=== PATIENT | female | born 1965 | race African-American/Black ===

== ENCOUNTER 2023-09-01 14:33 | Inpatient (IN) | payer OTHER ==
[2023-09-01 17:54] VITALS: BMI 26.6
[2023-09-01] MEDS ORDERED: LOPERAMIDE HCL 2 MG CAPSULE PO PRN (19:06)
[2023-09-01] MEDS ORDERED: ONDANSETRON *ODT* 4 MG TABLET SL PRN (19:06)
[2023-09-01] MEDS ORDERED: NALOXONE HCL 0.4 MG/ML VIAL IM PRN (19:06)
[2023-09-01] MEDS ORDERED: POLYETHYLENE GLYCOL (HEALTHYLAX) 3350 17 GM PACKET PO PRN (19:06)
[2023-09-01] MEDS ORDERED: MAGNESIUM HYDROX 2400MG/30ML ORAL SUSPENSION 30 ML CUP PO PRN (19:06)
[2023-09-01] MEDS ORDERED: IBUPROFEN 400 MG TABLET (FP) PO PRN (19:06)
[2023-09-01] MEDS ORDERED: BISMUTH SUBSALICYLATE 524 MG/30 ML PO PRN (19:06)
[2023-09-01] MEDS ORDERED: DICYCLOMINE HCL 10 MG CAPSULE PO PRN (19:06)
[2023-09-01] MEDS ORDERED: MAG HYDROX/AL HYDROX/SIMETH 30 ML UNIT-DOSE CUP PO PRN (19:06)
[2023-09-01] MEDS ORDERED: guaiFENesin 600 MG TABLET.ER (FP) PO PRN (19:06)
[2023-09-01] MEDS ORDERED: BENZOCAINE/MENTHOL (CHLORASEPTIC ) LOZENGE MM PRN (19:06)
[2023-09-01] MEDS ORDERED: NALOXONE HCL (KLOXXADO) 8 MG SPRAY NS PRN (19:06)
[2023-09-01] MEDS ORDERED: BENZONATATE 200 MG CAPSULE PO PRN (19:06)
[2023-09-01] MEDS: ACETAMINOPHEN 325 MG TABLET (FP) PO PRN (21:45)
[2023-09-01] MEDS: hydrOXYzine PAMOATE 25 MG CAPSULE (FP) PO PRN (21:45)
[2023-09-01] MEDS: MELATONIN 5 MG TABLETS PO SCH (21:46)
[2023-09-01] MEDS: THIAMINE HCL 100 MG TABLET (FP) PO SCH (21:46)
[2023-09-02] MEDS: METHOCARBAMOL 500 MG TABLET PO PRN (06:10)
[2023-09-02] MEDS: TIZANIDINE HCL 4 MG PO PRN (06:15)
[2023-09-02] MEDS ORDERED: tiZANidine HCL 4 MG TABLET PO PRN ×2 (08:55→08:57)
[2023-09-02] MEDS ORDERED: chlordiazePOXIDE HCL 25 MG CAPSULE PO PRN (09:20)
[2023-09-02] MEDS: IBUPROFEN 600 MG TABLET (FP) PO PRN (09:47)
[2023-09-02] MEDS: PRENATAL VITAMINS W/ FOLIC ACID TABLET (FP) PO SCH (09:53)
[2023-09-02] MEDS: chlordiazePOXIDE HCL 25 MG CAPSULE PO SCH (10:56)
[2023-09-02 11:49] LABS: HEMATOCRIT 42.6 % (32.4-45.2); HEMOGLOBIN 13.8 GM/dL (10.7-15.3); MCHC 32.3 g/dl (32.0-36.0); MEAN CELL VOLUME 95.8 fl (80-96); MEAN PLT VOLUME 8.5 fl (7.5-11.1); PLATELET COUNT 233 10^3/uL (134-434); RBC 4.45 M/mm3 (3.60-5.2); RDW 16.6 % (11.6-15.6); WHITE BLOOD COUNT 3.5 K/mm3 (4.0-10.0)
[2023-09-02 11:54] LABS: CHLORIDE 103 mmol/L (98-107); POTASSIUM 3.2 mmol/L (3.5-5.1); SODIUM 139 mmol/L (136-145)
[2023-09-02 12:09] LABS: ALBUMIN 3.4 g/dl (3.4-5.0); ANION GAP 4 mmol/L (4-13); BLOOD UREA NITROGEN 9.1 mg/dL (7-18); CALCIUM 9.4 mg/dL (8.5-10.1); CO2 32 mmol/L (21-32); GLUCOSE,RANDOM 74 mg/dL (74-106)
[2023-09-02 12:12] LABS: CREATININE 0.7 mg/dL (0.55-1.3); SGOT/AST 29 U/L (15-37)
[2023-09-02 12:15] LABS: ALK PHOS 94 U/L (45-117); BILIRUBIN,TOTAL 2.1 mg/dL (0.2-1); SGPT/ALT 23 U/L (13-61); TOT PROT 6.7 g/dl (6.4-8.2)
[2023-09-02 14:40] VITALS: BP 142/86; PULSE 74; RESP 18; TEMP 97.8
[2023-09-02] MEDS: POTASSIUM CHLORIDE ORAL LIQUID 20 MEQ/15 ML PO ONE (15:52)
[2023-09-04] MEDS ORDERED: chlordiazePOXIDE HCL 25 MG CAPSULE PO SCH (05:00)
[2023-09-05] MEDS ORDERED: chlordiazePOXIDE HCL 10 MG CAPSULE PO PRN
[2023-09-05] MEDS ORDERED: chlordiazePOXIDE HCL 10 MG CAPSULE PO SCH (05:00)
[2023-09-06] MEDS ORDERED: chlordiazePOXIDE HCL 10 MG CAPSULE PO SCH (05:00)
[2023-09-07] MEDS ORDERED: chlordiazePOXIDE HCL 10 MG CAPSULE PO ONE (05:00)
== END 2023-09-02 17:50 | disposition left against medical advice (07) | DRG 894 ==
LOC: YASAS 14:33 → Y3N 19:47
PROVIDERS: ADMIT Allergy & Immunology; ATTEND Surgery
PROC: HZ2ZZZZ Detoxification Services for Substance Abuse Treatment (ICD-10-PCS; principal; 2023-09-01)
DX: F10.230 Alcohol dependence with withdrawal, uncomplicated (principal); F14.20 Cocaine dependence, uncomplicated; F17.210 Nicotine dependence, cigarettes, uncomplicated; F41.8 Other specified anxiety disorders; G47.00 Insomnia, unspecified; Z86.39 Personal history of other endocrine, nutritional and metabolic disease; Z85.848 Personal history of malignant neoplasm of other parts of nervous tissue
CPT/HCPCS: 36415; 80053; 80307; 85027; 86780; 93005; 93010